=== PATIENT | female | born 1975 | race Caucasian/White ===

== ENCOUNTER 2020-10-06 21:18 | Emergency (ER) | payer OTHER ==
[~2020-10-06 21:18] MED LIST: ALDACTONE 25MG25 MG PO; ALDACTONE50 MG PO; ASPIRIN EC81 MG PO; BASAGLAR K100 UNIT/1 SQ; BUMETANIDE1 MG PO; CARVEDILOL25 MG PO; DECADRON6 MG PO; DEX4 GLUCOSE4 GM PO; ENTRESTO 24 MG1 EACH PO; ENTRESTO 97 MG1 EACH PO; FERROUS GLUCON324 M1 PO; FUROSEMIDE40 MG PO; GLUCAGON IV/SC 11 MG IM; GLUTOSE 1537.5 GM PO; HUMALOG 10100 UNITS/ SC; HUMALOG100 UNIT/3 SC; HYDRALAZINE HCL50 MG PO; K-TAB ER20 MEQ PO; LABETALOL HCL100 MG PO; LANTUS INS100 UTS/M1 SQ; LANTUS100 UNIT/1 SQ; LASIX40 MG PO; LISINOPRIL40 MG PO; METOPROLOL SUCC50 MG PO; NOVOLIN R100 UNIT/1 INJ; NOVOLOG100 UNIT/1 SC; VISTARIL25 MG PO
[2020-10-06 22:33] LABS: HEMOGLOBIN 12.4 gm/dl (12.3-15.3); RED BLOOD COUNT 4.76 M/UL (4.00-5.10); WHITE BLOOD COUNT 9.7 K/UL (4.5-11.0)
== END 2020-10-07 02:35 | disposition home or self-care (01) ==
LOC: ER1 21:18
DX: I13.0 Hypertensive heart and chronic kidney disease with heart failure and stage 1 through stage 4 chronic kidney disease, or unspecified chronic kidney disease (principal); N18.9 Chronic kidney disease, unspecified; I50.20 Unspecified systolic (congestive) heart failure; E11.40 Type 2 diabetes mellitus with diabetic neuropathy, unspecified; R79.89 Other specified abnormal findings of blood chemistry; I42.9 Cardiomyopathy, unspecified; E11.65 Type 2 diabetes mellitus with hyperglycemia; E11.22 Type 2 diabetes mellitus with diabetic chronic kidney disease; Z87.891 Personal history of nicotine dependence; Z79.82 Long term (current) use of aspirin
CPT/HCPCS: 71045; 80053; 82550; 82553; 83605; 83874; 83880; 84484; 85025; 93005; 96374; 96375; 99285; J0360; J1940

== ENCOUNTER 2020-12-02 09:10 | Inpatient (IN) | payer OTHER ==
[~2020-12-02] VITALS: Ht 177.8 cm; Wt 116.3 kg
[2020-12-02 10:22] LABS: HEMOGLOBIN 13.1 gm/dl (12.3-15.3); RED BLOOD COUNT 5.04 M/UL (4.00-5.10); WHITE BLOOD COUNT 9.5 K/UL (4.5-11.0)
[2020-12-02] MEDS ORDERED: LASIX40 MG PO (13:00)
[2020-12-02] MEDS ORDERED: PROTONIX20 MG PO (13:01)
[2020-12-03 05:05] LABS: HEMOGLOBIN 11.1 gm/dl (12.3-15.3); RED BLOOD COUNT 4.35 M/UL (4.00-5.10); WHITE BLOOD COUNT 7.1 K/UL (4.5-11.0)
[2020-12-06 05:35] LABS: HEMOGLOBIN 10.4 gm/dl (12.3-15.3); RED BLOOD COUNT 4.11 M/UL (4.00-5.10); WHITE BLOOD COUNT 6.6 K/UL (4.5-11.0)
[2020-12-06 07:11] LABS: ANTISTREPTOLYSIN O AB 354.9 IU/mL (0.0-200.0); COMPLEMENT C3, SERUM 124 mg/dL (82-167); COMPLEMENT C4, SERUM 28 mg/dL (12-38)
[2020-12-06 12:14] LABS: ANTI-DSDNA ANTIBODIES <1 IU/mL (0-9)
[2020-12-06 15:10] LABS: A/G RATIO 0.7 (0.7-1.7); ALBUMIN 2.4 g/dL (2.9-4.4); ALPHA-1-GLOBULIN 0.3 g/dL (0.0-0.4); ALPHA-2-GLOBULIN 0.7 g/dL (0.4-1.0); BETA GLOBULIN 1.2 g/dL (0.7-1.3); GAMMA GLOBULIN 1.4 g/dL (0.4-1.8); GLOBULIN, TOTAL 3.6 g/dL (2.2-3.9); IMMUNOGLOBULIN A, QN, SERUM 510 mg/dL (87-352); IMMUNOGLOBULIN G, QN, SERUM 1385 mg/dL (586-1602); IMMUNOGLOBULIN M, QN, SERUM 94 mg/dL (26-217); M-SPIKE Not Observed g/dL (Not Observed)
[2020-12-06 16:11] LABS: ATYPICAL PANCA <1:20 titer (Neg:<1:20); CYTOPLASMIC (C-ANCA) <1:20 titer (Neg:<1:20); PERINUCLEAR (P-ANCA) <1:20 titer (Neg:<1:20)
[2020-12-07 05:15] LABS: HEMOGLOBIN 9.7 gm/dl (12.3-15.3); RED BLOOD COUNT 3.81 M/UL (4.00-5.10)
[2020-12-07 07:11] LABS: HBSAG SCREEN Negative (Negative); HEP B CORE AB, TOT Negative (Negative); HEP C VIRUS AB >11.0 (0.0-0.9)
[2020-12-08 02:43] LABS: HEMOGLOBIN 9.8 gm/dl (12.3-15.3); RED BLOOD COUNT 3.84 M/UL (4.00-5.10); WHITE BLOOD COUNT 5.5 K/UL (4.5-11.0)
[2020-12-09 02:59] LABS: HEMOGLOBIN 9.1 gm/dl (12.3-15.3); RED BLOOD COUNT 3.68 M/UL (4.00-5.10)
[2020-12-09 03:03] LABS: WHITE BLOOD COUNT 7.1 K/UL (4.5-11.0)
[2020-12-10 03:30] LABS: HEMOGLOBIN 9.3 gm/dl (12.3-15.3); RED BLOOD COUNT 3.7 M/UL (4.00-5.10); WHITE BLOOD COUNT 5.4 K/UL (4.5-11.0)
[2020-12-11 03:54] LABS: HEMOGLOBIN 9.3 gm/dl (12.3-15.3); RED BLOOD COUNT 3.67 M/UL (4.00-5.10); WHITE BLOOD COUNT 5.1 K/UL (4.5-11.0)
[2020-12-11] MEDS ORDERED: LISINOPRIL5 MG PO (11:03)
[2020-12-11] MEDS ORDERED: NIFEDIPINE ER30 M1 PO (11:03)
[2020-12-11] MEDS ORDERED: CHRONULAC20 GM/30 M PO (11:03)
[2020-12-11] MEDS ORDERED: ISOSORBIDE MONO60 MG PO (11:03)
[2020-12-11] MEDS ORDERED: HYDRALAZINE HCL50 MG PO (11:03)
[2020-12-11] MEDS ORDERED: CATAPRES 0.1MG0.1 MG PO (11:03)
[2020-12-11] MEDS ORDERED: LASIX40 MG PO (11:03)
--- NOTE | 2020-12-11 16:20 | NUR ---
PULLED PATIENTS LEFT IJ CENTRAL LINE UPON DISCHARGE DRESSED WITH WHITE MEDIPORE TAPE AND 4X4'S APPLIED PRESSURE. PATIENT WAS HERE AT HOSPITAL FOR AN HOUR AFTER LINE WAS PULLED AND DRESSING WAS CLEAN DRY AND INTACT UPON DISCHARGE.
== END 2020-12-11 15:37 | disposition home or self-care (01) | DRG 291 ==
LOC: ER1 09:10 → CDU 12:08 → CCU 12:08 → M/S 12:08 → CDU 14:49 → CCU 14:55 → PROG CARE 12-07 04:13 → M/S 12-09 11:12
PROVIDERS: Emergency Medicine; Family Medicine; Internal Medicine Cardiovascular Disease; Internal Medicine Nephrology; Physician Assistant Medical; ADMIT Internal Medicine
PROC: 02HV33Z Insertion of Infusion Device into Superior Vena Cava, Percutaneous Approach (ICD-10-PCS; principal; 2020-12-05)
PROC: B548ZZA Ultrasonography of Superior Vena Cava, Guidance (ICD-10-PCS; 2020-12-05)
DX: I13.0 Hypertensive heart and chronic kidney disease with heart failure and stage 1 through stage 4 chronic kidney disease, or unspecified chronic kidney disease (principal); I50.23 Acute on chronic systolic (congestive) heart failure; E87.1 Hypo-osmolality and hyponatremia; N17.9 Acute kidney failure, unspecified; E11.65 Type 2 diabetes mellitus with hyperglycemia; E11.21 Type 2 diabetes mellitus with diabetic nephropathy; D50.9 Iron deficiency anemia, unspecified; E11.22 Type 2 diabetes mellitus with diabetic chronic kidney disease; I16.0 Hypertensive urgency; I42.8 Other cardiomyopathies; N18.30 Chronic kidney disease, stage 3 unspecified; F15.10 Other stimulant abuse, uncomplicated; E66.9 Obesity, unspecified; E78.5 Hyperlipidemia, unspecified; F17.210 Nicotine dependence, cigarettes, uncomplicated; Z79.01 Long term (current) use of anticoagulants; Z79.899 Other long term (current) drug therapy; Z79.82 Long term (current) use of aspirin; Z79.4 Long term (current) use of insulin; Z95.810 Presence of automatic (implantable) cardiac defibrillator; Z91.19 Patient's noncompliance with other medical treatment and regimen; Z86.19 Personal history of other infectious and parasitic diseases; Z90.49 Acquired absence of other specified parts of digestive tract; Z86.16 Personal history of COVID-19; Z20.822 Contact with and (suspected) exposure to COVID-19; Z68.33 Body mass index [BMI] 33.0-33.9, adult
CPT/HCPCS: 36415; 36600; 51702; 71045; 80048; 80053; 80307; 81001; 82550; 82553; 82570; 82728; 82784; 82803; 82947; 82962; 83036; 83520; 83540; 83550; 83605; 83735; 83874; 83880; 83883; 84132; 84155; 84156; 84165; 84484; 85025; 85027; 86038; 86060; 86160; 86162; 86225; 86256; 86334; 86704; 86706; 86708; 86803; 87040; 87340; 93005; 93308; 93971; 94640; 94664; 94760; 96372; 96374; 96375; 99285; C1751; J1205; J1644; J1756; J1940; U0002

== ENCOUNTER 2021-01-26 16:21 | Inpatient (IN) | payer OTHER ==
[~2021-01-26] VITALS: Ht 177.8 cm; Wt 102.3 kg
[~2021-01-26 16:21] MED LIST changes: +CATAPRES 0.1MG0.1 MG PO; +CHRONULAC20 GM/30 M PO; +ISOSORBIDE MONO60 MG PO; +LISINOPRIL5 MG PO; +NIFEDIPINE ER30 M1 PO; +PROTONIX20 MG PO
[2021-01-26 18:47] LABS: HEMOGLOBIN 13.3 gm/dl (12.3-15.3); RED BLOOD COUNT 4.77 M/UL (4.00-5.10); WHITE BLOOD COUNT 13.4 K/UL (4.5-11.0)
[2021-01-26] MEDS ORDERED: LASIX40 MG PO (22:15)
[2021-01-26] MEDS ORDERED: METOLAZONE10 MG PO (22:16)
--- NOTE | 2021-01-27 23:15 | NUR ---
0610: PATIENT HIT THE CALL LIGHT AND THIS NURSE GOES INTO THE ROOM TO ASSIST WITH THE PATIENT NEEDS. PATIENT STATED THAT SHE NEEDED TO USE THE RESTROOM. THIS NURSE UNATTACHES THE IV FLUIDS THAT ARE ATTACHED TO THE IV AND ECG MONITOR WIRES, TO ALLOW THE PATIENT TO WALK TO THE RESTROOM, AWARE THAT THE PATIENT WAS NOT A FALL RISK AND WAS AMBULATORY 4 HOURS PRIOR TO A PREVIOUS PATIENT ASSIST TO THE RESTROOM WITHOUT COMPLICATIONS OR WEAKNESS. FSBS WAS CHECKED PRIOR TO THE PATIENT EXITING THE BED WHICH RESULTED 97. WHEN THE PATIENT GOT OUT OF THE BED WITH THIS NURSES ASSISTANCE, THE PATIENT TOOK TWO STEPS AND LOST HER BALANCE. THIS NURSE GUIDED THE PATIENT DOWN TO THE FLOOR AND MADE SURE NO INJURIES WERE OBTAINED. HELP WAS CALLED BY THIS NURSE TO HELP ASSIST THE PATIENT BACK INTO THE BED. PATIENT QUESTIONED BY THIS NURSE ABOUT ANY INJURIES AND THE PATIENT STATED THAT NOTHING WAS HURT DURING OR AFTER HER FALL. MD NOTIFED. THIS NURSE MADE SURE THE BED WAS IN THE LOCKED AND LOWEST POSITION, BED ALARM REMAINED ON, AND CALL LIGHT IN REACH.
[2021-01-28 03:41] LABS: HEMOGLOBIN 10.7 gm/dl (12.3-15.3); RED BLOOD COUNT 3.94 M/UL (4.00-5.10); WHITE BLOOD COUNT 8.1 K/UL (4.5-11.0)
[2021-01-29 03:53] LABS: RED BLOOD COUNT 3.68 M/UL (4.00-5.10)
[2021-01-29 03:59] LABS: WHITE BLOOD COUNT 5.8 K/UL (4.5-11.0)
[2021-01-30 06:17] LABS: HEMOGLOBIN 10.1 gm/dl (12.3-15.3); RED BLOOD COUNT 3.72 M/UL (4.00-5.10)
[2021-01-30 06:30] LABS: WHITE BLOOD COUNT 8.2 K/UL (4.5-11.0)
[2021-01-31 05:53] LABS: HEMOGLOBIN 10.5 gm/dl (12.3-15.3); RED BLOOD COUNT 3.85 M/UL (4.00-5.10); WHITE BLOOD COUNT 8.7 K/UL (4.5-11.0)
--- NOTE | 2021-01-31 11:00 | NUR ---
1100: MANUAL BP OBTAINED BY RN NOTED AT 174/110. RN SPOKE WITH PAULETTE HILLIARD WHO IS TO RELAY MESSAGE TO DR SUERO (IN ROUTE TO FLOOR). AWAITING ORDERS.
[2021-01-31] MEDS ORDERED: NICOTINE PATCH1 EAC2 TD (11:24)
[2021-01-31] MEDS ORDERED: CEFUROXIME250 MG PO (11:24)
[2021-01-31] MEDS ORDERED: CHRONULAC20 GM/30 M PO ×2 (11:24→11:46)
== END 2021-01-31 14:56 | disposition home or self-care (01) | DRG 871 ==
LOC: ER1 16:21 → CCU 20:49 → CDU 20:49 → CCU 22:06 → MED SURG 4 01-29 11:49
PROVIDERS: Internal Medicine Infectious Disease; Physician Assistant; ADMIT Internal Medicine
DX: A41.9 Sepsis, unspecified organism (principal); E11.10 Type 2 diabetes mellitus with ketoacidosis without coma; N30.00 Acute cystitis without hematuria; N17.9 Acute kidney failure, unspecified; I13.0 Hypertensive heart and chronic kidney disease with heart failure and stage 1 through stage 4 chronic kidney disease, or unspecified chronic kidney disease; I50.22 Chronic systolic (congestive) heart failure; E87.1 Hypo-osmolality and hyponatremia; I42.8 Other cardiomyopathies; J90 Pleural effusion, not elsewhere classified; G93.49 Other encephalopathy; B96.20 Unspecified Escherichia coli [E. coli] as the cause of diseases classified elsewhere; N18.30 Chronic kidney disease, stage 3 unspecified; F17.210 Nicotine dependence, cigarettes, uncomplicated; R77.8 Other specified abnormalities of plasma proteins; F15.10 Other stimulant abuse, uncomplicated; F41.9 Anxiety disorder, unspecified; K52.9 Noninfective gastroenteritis and colitis, unspecified; K21.9 Gastro-esophageal reflux disease without esophagitis; D69.6 Thrombocytopenia, unspecified; E78.5 Hyperlipidemia, unspecified; I27.20 Pulmonary hypertension, unspecified; E87.5 Hyperkalemia; F32.9 Major depressive disorder, single episode, unspecified; E11.22 Type 2 diabetes mellitus with diabetic chronic kidney disease; D63.1 Anemia in chronic kidney disease; Z95.810 Presence of automatic (implantable) cardiac defibrillator; Z87.442 Personal history of urinary calculi; Z91.19 Patient's noncompliance with other medical treatment and regimen; Z90.49 Acquired absence of other specified parts of digestive tract; Z82.49 Family history of ischemic heart disease and other diseases of the circulatory system; Z86.16 Personal history of COVID-19; Z79.82 Long term (current) use of aspirin; Z79.4 Long term (current) use of insulin; Z79.899 Other long term (current) drug therapy
CPT/HCPCS: 0240U; 36415; 36600; 71045; 80048; 80053; 80307; 81001; 82550; 82553; 82803; 82962; 83036; 83605; 83735; 83874; 83880; 84100; 84439; 84443; 84484; 85025; 86140; 87040; 87077; 87086; 87186; 93005; 96365; 96375; 99285; C9113; J0696; J1650; J2270; J2405; J2543; J7030; J7050

== ENCOUNTER 2021-02-08 00:01 | Emergency (ER) | payer OTHER ==
[~2021-02-08 00:01] MED LIST changes: +CEFUROXIME250 MG PO; +METOLAZONE10 MG PO; +NICOTINE PATCH1 EAC2 TD
[2021-02-08 00:51] LABS: HEMOGLOBIN 11.2 gm/dl (12.3-15.3); RED BLOOD COUNT 4.08 M/UL (4.00-5.10); WHITE BLOOD COUNT 7.6 K/UL (4.5-11.0)
== END 2021-02-08 07:30 | disposition short-term general hospital (02) ==
LOC: ER1 00:01
PROVIDERS: Emergency Medicine
DX: I16.1 Hypertensive emergency (principal); I13.0 Hypertensive heart and chronic kidney disease with heart failure and stage 1 through stage 4 chronic kidney disease, or unspecified chronic kidney disease; N18.9 Chronic kidney disease, unspecified; I50.9 Heart failure, unspecified; E11.22 Type 2 diabetes mellitus with diabetic chronic kidney disease; I25.10 Atherosclerotic heart disease of native coronary artery without angina pectoris; Z20.822 Contact with and (suspected) exposure to COVID-19
CPT/HCPCS: 36600; 71045; 80053; 82550; 82553; 82803; 82962; 83605; 83735; 83874; 83880; 84100; 84439; 84443; 84484; 85025; 85610; 85730; 87040; 93005; 94760; 99285; J2270; J2405; U0002

== ENCOUNTER 2021-03-22 19:00 | Emergency (ER) | payer OTHER | END 2021-03-22 19:50 | disposition left against medical advice (07) | LOC: ER1 19:00 | DX: Z53.21 Procedure and treatment not carried out due to patient leaving prior to being seen by health care provider (principal) ==

== ENCOUNTER 2021-06-27 16:18 | Inpatient (IN) | payer OTHER ==
[~2021-06-27] VITALS: Ht 177.8 cm; Wt 79.4 kg
[2021-06-27 17:55] LABS: HEMOGLOBIN 8.9 gm/dl (12.3-15.3); RED BLOOD COUNT 3.21 M/UL (4.00-5.10); WHITE BLOOD COUNT 7.2 K/UL (4.5-11.0)
[2021-06-28 05:58] LABS: HEMOGLOBIN 9.7 gm/dl (12.3-15.3); RED BLOOD COUNT 3.37 M/UL (4.00-5.10); WHITE BLOOD COUNT 7.8 K/UL (4.5-11.0)
--- NOTE | 2021-06-28 16:16 | NUR ---
PATIENT GOES OFF THE FLOOR AND OUTSIDE WITH HER VISITOR. ADVISED NOT TO.
[2021-06-30 06:51] LABS: HEMOGLOBIN 10.4 gm/dl (12.3-15.3); RED BLOOD COUNT 3.56 M/UL (4.00-5.10); WHITE BLOOD COUNT 6.3 K/UL (4.5-11.0)
[2021-07-01 07:53] LABS: HEMOGLOBIN 9.4 gm/dl (12.3-15.3); RED BLOOD COUNT 3.41 M/UL (4.00-5.10); WHITE BLOOD COUNT 6.1 K/UL (4.5-11.0)
[2021-07-01] MEDS ORDERED: ZAROXOLYN/DIULO5 MG PO (12:06)
== END 2021-07-01 15:52 | disposition home or self-care (01) | DRG 637 ==
LOC: ER1 16:18 → CDU 18:57 → CCU 21:44 → M/S 06-28 11:16
PROVIDERS: Emergency Medicine; Internal Medicine Nephrology; ADMIT Internal Medicine
DX: E11.65 Type 2 diabetes mellitus with hyperglycemia (principal); G93.41 Metabolic encephalopathy; I50.32 Chronic diastolic (congestive) heart failure; Z20.822 Contact with and (suspected) exposure to COVID-19; I13.0 Hypertensive heart and chronic kidney disease with heart failure and stage 1 through stage 4 chronic kidney disease, or unspecified chronic kidney disease; N18.4 Chronic kidney disease, stage 4 (severe); N04.9 Nephrotic syndrome with unspecified morphologic changes; E87.1 Hypo-osmolality and hyponatremia; I42.8 Other cardiomyopathies; N17.9 Acute kidney failure, unspecified; D69.6 Thrombocytopenia, unspecified; F41.9 Anxiety disorder, unspecified; F32.A Depression, unspecified; E11.22 Type 2 diabetes mellitus with diabetic chronic kidney disease; F17.210 Nicotine dependence, cigarettes, uncomplicated; D63.1 Anemia in chronic kidney disease; F15.10 Other stimulant abuse, uncomplicated; F19.10 Other psychoactive substance abuse, uncomplicated; Z79.4 Long term (current) use of insulin; Z95.810 Presence of automatic (implantable) cardiac defibrillator; Z91.14 Patient's other noncompliance with medication regimen; Z79.82 Long term (current) use of aspirin; Z90.49 Acquired absence of other specified parts of digestive tract; Z82.49 Family history of ischemic heart disease and other diseases of the circulatory system; Z98.891 History of uterine scar from previous surgery; Z87.442 Personal history of urinary calculi
CPT/HCPCS: 36415; 36600; 71045; 80048; 80053; 80069; 80307; 81001; 82009; 82550; 82553; 82728; 82803; 82962; 83540; 83550; 83874; 83880; 84484; 84703; 85025; 85027; 87040; 87086; 93005; 99285; J0696; Q5106; U0002

== ENCOUNTER 2021-08-18 18:11 | Inpatient (IN) | payer OTHER ==
[~2021-08-18] VITALS: Ht 177.8 cm; Wt 68.0 kg
[~2021-08-18 18:11] MED LIST changes: +ZAROXOLYN/DIULO5 MG PO
[2021-08-18 18:22] LABS: HEMOGLOBIN 11.3 gm/dl (12.3-15.3); WHITE BLOOD COUNT 7.3 K/UL (4.5-11.0)
[2021-08-19 06:04] LABS: HEMOGLOBIN 10.8 gm/dl (12.3-15.3); RED BLOOD COUNT 3.83 M/UL (4.00-5.10); WHITE BLOOD COUNT 8.7 K/UL (4.5-11.0)
[2021-08-19 14:37] LABS: HEMOGLOBIN 10.4 gm/dl (12.3-15.3); RED BLOOD COUNT 3.71 M/UL (4.00-5.10); WHITE BLOOD COUNT 8.5 K/UL (4.5-11.0)
[2021-08-21 06:53] LABS: HEMOGLOBIN 10.1 gm/dl (12.3-15.3); RED BLOOD COUNT 3.56 M/UL (4.00-5.10); WHITE BLOOD COUNT 7.2 K/UL (4.5-11.0)
[2021-08-22 04:19] LABS: HEMOGLOBIN 10.5 gm/dl (12.3-15.3); RED BLOOD COUNT 3.7 M/UL (4.00-5.10); WHITE BLOOD COUNT 6.3 K/UL (4.5-11.0)
[2021-08-23 06:48] LABS: HEMOGLOBIN 9.6 gm/dl (12.3-15.3); RED BLOOD COUNT 3.38 M/UL (4.00-5.10); WHITE BLOOD COUNT 6.6 K/UL (4.5-11.0)
--- NOTE | 2021-08-28 14:27 | NUR ---
PATIENT C/O NOT FEELING WELL. STATED SHE THOUGHT HER BS WAS LOW. PATIENT ASSESSED. BS 82. VS WNL. O2 SAT 100% ON RM AIR. PATIENT ASKED FOR REGULAR 7UP. STATED 82 IS A LOW BS FOR HER. PATIENT GIVEN 7UP. PATIENT STATED SHE FELT BETTER.
--- NOTE | 2021-08-28 23:58 | NUR ---
S/O came out and said pt felt like her blood glucose was low. When I checked it was 69. No hypoglycemic protocol was on the OCT. I called Dr. Ojeda and he gave an order for hypoglycemic protocol and it was fax to pharmacy. The patient didn't want medication by IV but she is eating peanut butter and crackers and a soda. I will recheck in 30 min.
[2021-08-29 13:21] LABS: URINE CREATININE 58.7 mg/dL
[2021-08-30 06:50] LABS: HEMOGLOBIN 9.3 gm/dl (12.3-15.3); RED BLOOD COUNT 3.31 M/UL (4.00-5.10); WHITE BLOOD COUNT 5.4 K/UL (4.5-11.0)
[2021-08-30 07:22] LABS: BUN/CREATININE RATIO 13 (0-10)
[2021-08-31 04:41] LABS: HEMOGLOBIN 8.4 gm/dl (12.3-15.3); RED BLOOD COUNT 3.08 M/UL (4.00-5.10); WHITE BLOOD COUNT 5.3 K/UL (4.5-11.0)
--- NOTE | 2021-08-31 16:03 | NUR ---
PT IS OFF THE UNIT AFTER HAVING A RIGHT CHEST WALL DIALYSIS CATHETER PLACED SHE IS IN DIALYSIS.
[2021-09-01 05:47] LABS: HEMOGLOBIN 9.5 gm/dl (12.3-15.3); WHITE BLOOD COUNT 5.9 K/UL (4.5-11.0)
[2021-09-01 05:54] LABS: RED BLOOD COUNT 3.43 M/UL (4.00-5.10)
[2021-09-02 09:22] LABS: RED BLOOD COUNT 3.2 M/UL (4.00-5.10)
[2021-09-02 09:25] LABS: WHITE BLOOD COUNT 3.1 K/UL (4.5-11.0)
--- NOTE | 2021-09-02 19:00 | NUR ---
DIALYSIS NURSE COMMUNICATION ENTERED BY THIS AM. PATIENT DIDN'T RECEIVE DIALYSIS THIS SHIFT. ATTEMPTED TO NOTIFY [facility] THE DIALYSIS NURSE HEALTH CARE SPECIALIST AT [phone] WITH NO ANSWER X3 ATTEMPTS.
--- NOTE | 2021-09-02 20:36 | NUR ---
2019 [facility] Dialysis nurse agricultural extension educator returned my call. I explained the nurse note Dr. Madsen left for the dialysis nurse. Dr. Madsen wanted the patient to have dialysis today 09/02/21. She called Dr. Madsen who said she could have the treatment tomorrow. Maddy ask that I print the nursing communication note and place it in the chart for her. Printed and in the chart.
[2021-09-03 05:41] LABS: HEMOGLOBIN 9.1 gm/dl (12.3-15.3); RED BLOOD COUNT 3.21 M/UL (4.00-5.10); WHITE BLOOD COUNT 3.8 K/UL (4.5-11.0)
--- NOTE | 2021-09-03 09:42 | NUR ---
DIALYSIS NURSE NOTIFIED THAT PATIENT IS TO HAVE DIALYSIS TODAY. NURSE STATES SHE WILL GET HER IN AN HOUR OR SO.
[2021-09-04 06:57] LABS: HEMOGLOBIN 9.6 gm/dl (12.3-15.3); RED BLOOD COUNT 3.46 M/UL (4.00-5.10); WHITE BLOOD COUNT 3.9 K/UL (4.5-11.0)
[2021-09-05 04:18] LABS: HEMOGLOBIN 8.7 gm/dl (12.3-15.3); RED BLOOD COUNT 3.14 M/UL (4.00-5.10); WHITE BLOOD COUNT 4.3 K/UL (4.5-11.0)
[2021-09-05 10:15] LABS: HBSAG SCREEN Negative (Negative); HEP A AB, IGM Negative (Negative); HEP B CORE AB, IGM Negative (Negative); HEP C VIRUS AB >11.0 (0.0-0.9)
[2021-09-06 04:27] LABS: HEMOGLOBIN 8.8 gm/dl (12.3-15.3); RED BLOOD COUNT 3.19 M/UL (4.00-5.10); WHITE BLOOD COUNT 4.3 K/UL (4.5-11.0)
[2021-09-06] MEDS ORDERED: HUMALOG 10100 UNITS/ SC ×2 (16:00)
[2021-09-06] MEDS ORDERED: POLYETHYLENE GL17 GM PO (16:00)
[2021-09-06] MEDS ORDERED: DOCUSATE SODIU100 MG PO (16:00)
[2021-09-06] MEDS ORDERED: NIFEDIPINE ER30 M1 PO (16:07)
[2021-09-06] MEDS ORDERED: NIFEDIPINE ER90 MG PO (16:15)
[2021-09-06] MEDS ORDERED: LIDOCAINE PAIN1 EACH EXT (17:06)
[2021-09-06] MEDS ORDERED: ZOFRAN 4 MG TAB4 MG PO (17:07)
== END 2021-09-06 17:43 | disposition home health service (06) | DRG 637 ==
LOC: ER1 18:11 → PROG CARE 21:04 → CDU 21:04 → CCU 21:04 → M/S 21:04 → CCU 08-19 02:25 → PROG CARE 08-21 10:27 → M/S 08-22 21:01
PROVIDERS: Hospitalist; Internal Medicine; Internal Medicine Nephrology; Nurse Practitioner; Physician Assistant; Surgery; ADMIT Internal Medicine
PROC: 5A1D70Z Performance of Urinary Filtration, Intermittent, Less than 6 Hours Per Day (ICD-10-PCS; 2021-08-30)
PROC: 02HV33Z Insertion of Infusion Device into Superior Vena Cava, Percutaneous Approach (ICD-10-PCS; 2021-08-31)
PROC: 0JH63XZ Insertion of Tunneled Vascular Access Device into Chest Subcutaneous Tissue and Fascia, Percutaneous Approach (ICD-10-PCS; principal; 2021-08-31 11:19)
PROC: 5A1D70Z Performance of Urinary Filtration, Intermittent, Less than 6 Hours Per Day (ICD-10-PCS; 2021-09-01)
PROC: 5A1D70Z Performance of Urinary Filtration, Intermittent, Less than 6 Hours Per Day (ICD-10-PCS; 2021-09-03)
PROC: 5A1D70Z Performance of Urinary Filtration, Intermittent, Less than 6 Hours Per Day (ICD-10-PCS; 2021-09-05)
DX: E11.10 Type 2 diabetes mellitus with ketoacidosis without coma (principal); N18.6 End stage renal disease; I50.23 Acute on chronic systolic (congestive) heart failure; I13.2 Hypertensive heart and chronic kidney disease with heart failure and with stage 5 chronic kidney disease, or end stage renal disease; E87.1 Hypo-osmolality and hyponatremia; N17.9 Acute kidney failure, unspecified; N04.9 Nephrotic syndrome with unspecified morphologic changes; I25.5 Ischemic cardiomyopathy; E86.0 Dehydration; I16.0 Hypertensive urgency; E78.5 Hyperlipidemia, unspecified; F17.200 Nicotine dependence, unspecified, uncomplicated; Z20.822 Contact with and (suspected) exposure to COVID-19; F41.9 Anxiety disorder, unspecified; F32.A Depression, unspecified; E87.6 Hypokalemia; D64.9 Anemia, unspecified; F19.10 Other psychoactive substance abuse, uncomplicated; M54.9 Dorsalgia, unspecified; K59.00 Constipation, unspecified; B19.20 Unspecified viral hepatitis C without hepatic coma; E87.5 Hyperkalemia; R53.81 Other malaise; E11.22 Type 2 diabetes mellitus with diabetic chronic kidney disease; Z91.14 Patient's other noncompliance with medication regimen; Z99.2 Dependence on renal dialysis; Z87.442 Personal history of urinary calculi; Z90.49 Acquired absence of other specified parts of digestive tract; Z98.890 Other specified postprocedural states; Z95.810 Presence of automatic (implantable) cardiac defibrillator; Z80.8 Family history of malignant neoplasm of other organs or systems; Z79.4 Long term (current) use of insulin; Z79.899 Other long term (current) drug therapy; Z79.82 Long term (current) use of aspirin
CPT/HCPCS: 36415; 36600; 71045; 77001; 78580; 80048; 80053; 80069; 80074; 80076; 80307; 81001; 82009; 82550; 82553; 82565; 82570; 82575; 82728; 82803; 82947; 82962; 83540; 83550; 83735; 83874; 83880; 84100; 84132; 84484; 84703; 85007; 85025; 85027; 85379; 85610; 85730; 86140; 90935; 90937; 93005; 93970; 96374; 96375; 97110; 97110-GP-CQ; 97116-GP-CQ; 97161; 97166; 97530-GP-CQ; 99284; A9540; C1750; C1769; C9113; J0360; J0690; J1642; J1644; J2405; J3010; J3475; J3480; J7030; J7040; J7070; J7120; J7131; U0002

== ENCOUNTER 2021-09-10 04:27 | Inpatient (IN) | payer OTHER ==
[~2021-09-10] VITALS: Ht 177.8 cm; Wt 93.0 kg
[~2021-09-10 04:27] MED LIST changes: +DOCUSATE SODIU100 MG PO; +LIDOCAINE PAIN1 EACH EXT; +NIFEDIPINE ER90 MG PO; +POLYETHYLENE GL17 GM PO; +ZOFRAN 4 MG TAB4 MG PO
[2021-09-10 05:44] LABS: RED BLOOD COUNT 3.87 M/UL (4.00-5.10); WHITE BLOOD COUNT 13.1 K/UL (4.5-11.0)
[2021-09-11 05:24] LABS: HEMOGLOBIN 9.9 gm/dl (12.3-15.3); RED BLOOD COUNT 3.54 M/UL (4.00-5.10)
[2021-09-11 05:38] LABS: WHITE BLOOD COUNT 6.5 K/UL (4.5-11.0)
[2021-09-12 05:30] LABS: HEMOGLOBIN 8.9 gm/dl (12.3-15.3); RED BLOOD COUNT 3.28 M/UL (4.00-5.10); WHITE BLOOD COUNT 5.1 K/UL (4.5-11.0)
[2021-09-13 05:35] LABS: HEMOGLOBIN 8.2 gm/dl (12.3-15.3); RED BLOOD COUNT 3.06 M/UL (4.00-5.10); WHITE BLOOD COUNT 4.7 K/UL (4.5-11.0)
--- NOTE | 2021-09-13 15:13 | NUR ---
PATIENT TRANSPORTED TO DIALYSIS BY TRANSPORTER. PATIENT PLACED ON TELEMETRY
--- NOTE | 2021-09-13 18:05 | NUR ---
PATIENT REMAINS IN DIALYSIS ROOM
[2021-09-13] MEDS ORDERED: LISINOPRIL10 MG PO (18:32)
[2021-09-13] MEDS ORDERED: CATAPRES 0.1MG0.1 MG PO ×2 (18:32→18:39)
[2021-09-14 08:14] LABS: RED BLOOD COUNT 3.31 M/UL (4.00-5.10)
[2021-09-14 08:23] LABS: WHITE BLOOD COUNT 6.3 K/UL (4.5-11.0)
== END 2021-09-14 14:30 | disposition home or self-care (01) | DRG 291 ==
LOC: ER1 04:27 → CDU 08:53 → CCU 08:53
PROVIDERS: Family Medicine; Internal Medicine; Physician Assistant Medical; ADMIT Internal Medicine
PROC: 5A1D70Z Performance of Urinary Filtration, Intermittent, Less than 6 Hours Per Day (ICD-10-PCS; principal; 2021-09-10)
PROC: 5A1D70Z Performance of Urinary Filtration, Intermittent, Less than 6 Hours Per Day (ICD-10-PCS; 2021-09-11)
PROC: 5A1D70Z Performance of Urinary Filtration, Intermittent, Less than 6 Hours Per Day (ICD-10-PCS; 2021-09-12)
PROC: 5A1D70Z Performance of Urinary Filtration, Intermittent, Less than 6 Hours Per Day (ICD-10-PCS; 2021-09-12)
DX: I13.2 Hypertensive heart and chronic kidney disease with heart failure and with stage 5 chronic kidney disease, or end stage renal disease (principal); N18.6 End stage renal disease; I50.23 Acute on chronic systolic (congestive) heart failure; E11.22 Type 2 diabetes mellitus with diabetic chronic kidney disease; F19.10 Other psychoactive substance abuse, uncomplicated; Z20.822 Contact with and (suspected) exposure to COVID-19; I42.8 Other cardiomyopathies; F17.210 Nicotine dependence, cigarettes, uncomplicated; E78.5 Hyperlipidemia, unspecified; I16.0 Hypertensive urgency; B18.2 Chronic viral hepatitis C; M54.50 Low back pain, unspecified; Z99.2 Dependence on renal dialysis; Z95.810 Presence of automatic (implantable) cardiac defibrillator; Z79.899 Other long term (current) drug therapy; Z87.442 Personal history of urinary calculi; Z90.49 Acquired absence of other specified parts of digestive tract; Z98.890 Other specified postprocedural states; Z79.82 Long term (current) use of aspirin; Z80.8 Family history of malignant neoplasm of other organs or systems; Z79.4 Long term (current) use of insulin
CPT/HCPCS: 36415; 36600; 71045; 72131; 74018; 80048; 80053; 80307; 81001; 82550; 82553; 82728; 82803; 82962; 83540; 83550; 83735; 83874; 83880; 84484; 84703; 85025; 85027; 85610; 90937; 93005; 94760; 96372; 96374; 96375; 96376; 99285; G0257; J0360; J1644; J1650; J2185; J2270; J2405; U0002

== ENCOUNTER 2021-11-22 16:52 | Inpatient (IN) | payer OTHER ==
[~2021-11-22] VITALS: Ht 180.3 cm; Wt 78.1 kg
[~2021-11-22 16:52] MED LIST changes: -BASAGLAR K100 UNIT/1 SQ; +LANTUS SOL100 UNIT/1 SQ; +LISINOPRIL10 MG PO
[2021-11-22 18:44] LABS: HEMOGLOBIN 10.1 gm/dl (12.3-15.3); RED BLOOD COUNT 3.45 M/UL (4.00-5.10); WHITE BLOOD COUNT 8.5 K/UL (4.5-11.0)
[2021-11-23 06:31] LABS: HEMOGLOBIN 9.3 gm/dl (12.3-15.3); RED BLOOD COUNT 3.2 M/UL (4.00-5.10); WHITE BLOOD COUNT 8.1 K/UL (4.5-11.0)
[2021-11-23] MEDS ORDERED: CLONIDINE HCL0.1 MG PO (11:15)
[2021-11-23] MEDS ORDERED: HUMALOG100 UNIT/3 SC (11:19)
[2021-11-23] MEDS ORDERED: HUMALOG100 UNIT/3 SQ (11:22)
[2021-11-23] MEDS ORDERED: AMITRIPTYLINE H25 MG PO (11:24)
[2021-11-23] MEDS ORDERED: ONDANSETRON HCL4 MG PO (11:25)
[2021-11-23] MEDS ORDERED: HYDROCODON-ACE1 EAC2 PO (11:28)
[2021-11-23] MEDS ORDERED: LIDOCAINE PAIN1 EACH TOP (12:12)
== END 2021-11-23 18:00 | disposition home or self-care (01) | DRG 314 ==
LOC: ER1 16:52 → CDU 19:08 → M/S 19:26 → CDU 11-23 15:13 → M/S 11-23 18:00
PROVIDERS: Emergency Medicine; ADMIT Internal Medicine
PROC: 5A1D70Z Performance of Urinary Filtration, Intermittent, Less than 6 Hours Per Day (ICD-10-PCS; principal; 2021-11-23)
DX: T82.818A Embolism due to vascular prosthetic devices, implants and grafts, initial encounter (principal); N18.6 End stage renal disease; E87.1 Hypo-osmolality and hyponatremia; E87.2 Acidosis; I13.2 Hypertensive heart and chronic kidney disease with heart failure and with stage 5 chronic kidney disease, or end stage renal disease; I50.22 Chronic systolic (congestive) heart failure; Z20.822 Contact with and (suspected) exposure to COVID-19; Y83.8 Other surgical procedures as the cause of abnormal reaction of the patient, or of later complication, without mention of misadventure at the time of the procedure; E11.22 Type 2 diabetes mellitus with diabetic chronic kidney disease; E11.21 Type 2 diabetes mellitus with diabetic nephropathy; D63.1 Anemia in chronic kidney disease; F17.210 Nicotine dependence, cigarettes, uncomplicated; R19.7 Diarrhea, unspecified; Z91.15 Patient's noncompliance with renal dialysis; Z79.4 Long term (current) use of insulin; Z79.01 Long term (current) use of anticoagulants; Z79.82 Long term (current) use of aspirin; Z98.891 History of uterine scar from previous surgery; Z90.49 Acquired absence of other specified parts of digestive tract; Z87.442 Personal history of urinary calculi; Z80.9 Family history of malignant neoplasm, unspecified; Z83.6 Family history of other diseases of the respiratory system; Z95.810 Presence of automatic (implantable) cardiac defibrillator
CPT/HCPCS: 36415; 80048; 82962; 83735; 85025; 90935; 93005; 99284; J2997; U0002

== ENCOUNTER 2021-12-01 09:51 | Inpatient (IN) | payer OTHER ==
[~2021-12-01] VITALS: Ht 180 cm; Wt 75.6 kg
[~2021-12-01 09:51] MED LIST changes: +AMITRIPTYLINE H25 MG PO; +CLONIDINE HCL0.1 MG PO; +HUMALOG100 UNIT/3 SQ; +HYDROCODON-ACE1 EAC2 PO; +LIDOCAINE PAIN1 EACH TOP; +ONDANSETRON HCL4 MG PO
[2021-12-01 11:03] LABS: HEMOGLOBIN 10.4 gm/dl (12.3-15.3); RED BLOOD COUNT 3.63 M/UL (4.00-5.10); WHITE BLOOD COUNT 13.3 K/UL (4.5-11.0)
[2021-12-02 05:29] LABS: HEMOGLOBIN 8.8 gm/dl (12.3-15.3)
[2021-12-02 05:31] LABS: RED BLOOD COUNT 3.19 M/UL (4.00-5.10); WHITE BLOOD COUNT 9.9 K/UL (4.5-11.0)
[2021-12-02] MEDS ORDERED: CLONIDINE HCL0.1 MG PO (12:32)
[2021-12-03 06:15] LABS: HEMOGLOBIN 8.8 gm/dl (12.3-15.3); RED BLOOD COUNT 3.08 M/UL (4.00-5.10); WHITE BLOOD COUNT 11.4 K/UL (4.5-11.0)
[2021-12-04 06:02] LABS: HEMOGLOBIN 9.3 gm/dl (12.3-15.3); RED BLOOD COUNT 3.25 M/UL (4.00-5.10); WHITE BLOOD COUNT 10.2 K/UL (4.5-11.0)
--- NOTE | 2021-12-05 01:43 | NUR ---
PT CRYING STATING THAT SHE NEEDS SOMETHING FOR PAIN. NOTIFIED MD AND RECIEVED ORDERS. WILL CONTINUE TO MONITOR.
[2021-12-05 06:09] LABS: HEMOGLOBIN 8.8 gm/dl (12.3-15.3); RED BLOOD COUNT 3.16 M/UL (4.00-5.10); WHITE BLOOD COUNT 9.9 K/UL (4.5-11.0)
[2021-12-06 05:11] LABS: HEMOGLOBIN 8.6 gm/dl (12.3-15.3); RED BLOOD COUNT 3.07 M/UL (4.00-5.10); WHITE BLOOD COUNT 9.8 K/UL (4.5-11.0)
--- NOTE | 2021-12-06 05:51 | NUR ---
NOTIFIED DR RAMIREZ OF CRITICAL POTASSIUM LEVEL OF 5.6. RECIEVED NO NEW ORDERS. PT TO RECIEVE DIALYSIS TODAY.
--- NOTE | 2021-12-06 10:32 | NUR ---
RECIEVED CALL THIS MORNING FROM DAISHA ALEXIS IN CARDIOLOGY. HE STATED A REP FROM [employer] HAD INFORMED HIM THAT THE PATINETS AICD WAS MRI COMPATABLE. THIS INFORMATION WAS GIVEN TO DR. DUARTE, HE WANTED AN MRI DONE ON PATIENT'S C SPINE WITHOUT CONTRAST. DR DUARTE SAID TO GET THE MRI DONE TODAY AFTER DIALYSIS OR TOMORROW IF POSSIBLE. CM IN MRI CALLED THE NURSE TO INFORM FROM HIS POINT OF VIEW THE [employer] REP HAD TO BE IN THE MRI ROOM DURING THE MRI IN ORDER TO TURN AICD ON AND OFF AND MONITOR PATIENT DURING PROCEDURE. THIS INFORMATION WAS ALSO PASSED ALONG TO DR. DUARTE WHO SAID HE ANTICIPATED SUCH A PROBLEM AND HAD PUT IN A CONSULT WITH DR PUENTE. A CARDIOLOGY PA APPROACHED THE NURSE THIS AM AND ASKED ABOUT THIS VERY SITUATION. SHE SAID SHE WOULD LOOK INTO IT AND TRY TO CONTACT ALL INVOLVED.WCTM.
[2021-12-07 06:44] LABS: RED BLOOD COUNT 3.22 M/UL (4.00-5.10); WHITE BLOOD COUNT 9.4 K/UL (4.5-11.0)
[2021-12-08 06:25] LABS: WHITE BLOOD COUNT 8.9 K/UL (4.5-11.0)
[2021-12-08 06:34] LABS: RED BLOOD COUNT 3.61 M/UL (4.00-5.10)
--- NOTE | 2021-12-08 10:59 | NUR ---
1033 - IN DIALYSIS TO SEE PT. PT C/O MIDSTERNAL CP WITHOUT RADIATION. STATES 02/11. B/P 197/131. MD AT BEDSIDE AND AWARE. NTG 1 SL GIVEN 1038 - REPORTS SOME RELIEF OF CP. STATES 10/12. B/P 180/112. NTG 1 SL GIVEN. 1043 - REPORTS COMPLETE RELIEF OF CP. B/P 172/108. MD AWARE. COREG AND IMDUR GIVEN PER AM MEDICATIONS. WILL CONT TO MONITOR. DIALYSIS NURSE REMAINS AT BEDSIDE.
[2021-12-09 03:31] LABS: HEMOGLOBIN 8.6 gm/dl (12.3-15.3); WHITE BLOOD COUNT 9.1 K/UL (4.5-11.0)
[2021-12-09 03:32] LABS: RED BLOOD COUNT 3.1 M/UL (4.00-5.10)
[2021-12-10 00:20] LABS: ESCHERICHIA COLI Not Detected (Negative); KLEBSIELLA OXYTOCA Not Detected (Negative); KPC-CARBAPENEM-RESISTANCE GENE Not Detected (Negative); STAPHYLOCOCCUS AUREUS Not Detected (Negative); STREP AGALACTIAE (GROUP B) Not Detected (Negative); STREP PYOGENES (GROUP A) Not Detected (Negative); STREPTOCOCCUS Not Detected (Negative); vanA/B (VANCOMYCIN RESIST GENE Not Detected (Negative)
[2021-12-10 00:21] LABS: CANDIDA ALBICANS Not Detected (Negative); CANDIDA KRUSEI Not Detected (Negative); CANDIDA TROPICALIS Not Detected (Negative); HAEMOPHILUS INFLUENZAE Not Detected (Negative); KLEBSIELLA PNEUMONIAE Not Detected (Negative); PROTEUS Not Detected (Negative); PSEUDOMONAS AERUGINOSA Not Detected (Negative); SERRATIA MARCESANS Not Detected (Negative)
[2021-12-10 01:31] LABS: STAPHYLOCOCCUS DETECTED (Negative)
--- NOTE | 2021-12-10 20:27 | NUR ---
NOTIFIED DR. FORBES OF CRITICAL CK-MB 9.5 % 10.2. NO NEW ORDERS
[2021-12-11 02:57] LABS: HEMOGLOBIN 8.6 gm/dl (12.3-15.3); RED BLOOD COUNT 3.09 M/UL (4.00-5.10); WHITE BLOOD COUNT 8.1 K/UL (4.5-11.0)
--- NOTE | 2021-12-11 22:56 | NUR ---
12/11/21 @ 2133 WHILE GIVING THE PT BEDTIME MEDS PT STATES: "I DON'T WANT TO GO TO [facility]. MY BOYFRIEND WAS SUPPOSED TO COME TAKE ME OUTSIDE. AND I DON'T WANT THOSE FLUIDS GOING." I EXPLAINED THAT THEY HAD BEEN ORDERED DUE TO HER BG DROPPING THROUGH OUT THE DAY. AT 2230 PT WAS CRYING AND SAID SHE HAD TO GO TO THE BATHROOM. SHE WAS UNHOOKED FROM HER IV FLUIDS SO SHE COULD GO TO THE BATHROOM. WHEN SHE GOT BACK I WENT TO HOOK HER IV FLUIDS BACK UP AND PT REFUSED. I EXPLAINED WHY I NEEDED TO HOOK THEM UP AND SHE SAID HER BOYFRIEND WAS COMING TO TAKE HER OUTSIDE. HE CAME AND GOT HER INTO A WHEELCHAIR. I REMOVED THE OXYGEN TANK FROM THE BACK OF THE WHEELCHAIR, ALTHOUGH SHE WEARS IT IN HER ROOM SHE WASN'T HOOKED UP TO THE PORTABLE TANK. I EDUCATED THE PATIENT IN THE NEED TO WEAR THE OXYGEN AND THE NEED TO RESTART HER FLUIDS. PT VERBALIZED UNDERSTANDING AND HER BOYFRIEND TOOK THE PATIENT OUTSIDE.
[2021-12-12 07:01] LABS: HEMOGLOBIN 8.4 gm/dl (12.3-15.3); RED BLOOD COUNT 2.97 M/UL (4.00-5.10); WHITE BLOOD COUNT 8.1 K/UL (4.5-11.0)
[2021-12-13 02:57] LABS: HEMOGLOBIN 7.8 gm/dl (12.3-15.3); RED BLOOD COUNT 2.81 M/UL (4.00-5.10); WHITE BLOOD COUNT 7.5 K/UL (4.5-11.0)
--- NOTE | 2021-12-13 04:32 | NUR ---
0400 BG 79 GAVE PT A SNACK AND APPLE JUICE.
== END 2021-12-14 18:42 | disposition short-term general hospital (02) | DRG 94 ==
LOC: ER1 09:51 → CDU 12:45 → MED SURG 4 12:45 → CCU 14:37 → MED SURG 4 12-02 19:41
PROVIDERS: Family Medicine; Internal Medicine; Internal Medicine Infectious Disease; Internal Medicine Nephrology; Internal Medicine Pulmonary Disease; Physician Assistant Medical; ADMIT Internal Medicine
PROC: 5A1D70Z Performance of Urinary Filtration, Intermittent, Less than 6 Hours Per Day (ICD-10-PCS; principal; 2021-12-04)
PROC: 5A1D70Z Performance of Urinary Filtration, Intermittent, Less than 6 Hours Per Day (ICD-10-PCS; 2021-12-06)
PROC: 5A1D70Z Performance of Urinary Filtration, Intermittent, Less than 6 Hours Per Day (ICD-10-PCS; 2021-12-08)
PROC: 5A1D70Z Performance of Urinary Filtration, Intermittent, Less than 6 Hours Per Day (ICD-10-PCS; 2021-12-11)
PROC: 5A1D70Z Performance of Urinary Filtration, Intermittent, Less than 6 Hours Per Day (ICD-10-PCS; 2021-12-13)
DX: G06.1 Intraspinal abscess and granuloma (principal); J96.01 Acute respiratory failure with hypoxia; I50.23 Acute on chronic systolic (congestive) heart failure; E11.10 Type 2 diabetes mellitus with ketoacidosis without coma; N18.6 End stage renal disease; M46.22 Osteomyelitis of vertebra, cervical region; I42.0 Dilated cardiomyopathy; E87.1 Hypo-osmolality and hyponatremia; I47.1 Supraventricular tachycardia; I13.2 Hypertensive heart and chronic kidney disease with heart failure and with stage 5 chronic kidney disease, or end stage renal disease; E11.69 Type 2 diabetes mellitus with other specified complication; M46.42 Discitis, unspecified, cervical region; F17.210 Nicotine dependence, cigarettes, uncomplicated; E11.65 Type 2 diabetes mellitus with hyperglycemia; E11.22 Type 2 diabetes mellitus with diabetic chronic kidney disease; F15.10 Other stimulant abuse, uncomplicated; I34.0 Nonrheumatic mitral (valve) insufficiency; I27.20 Pulmonary hypertension, unspecified; B18.2 Chronic viral hepatitis C; K21.9 Gastro-esophageal reflux disease without esophagitis; E87.5 Hyperkalemia; E78.5 Hyperlipidemia, unspecified; E11.43 Type 2 diabetes mellitus with diabetic autonomic (poly)neuropathy; R13.12 Dysphagia, oropharyngeal phase; E11.649 Type 2 diabetes mellitus with hypoglycemia without coma; I16.0 Hypertensive urgency; K59.09 Other constipation; E66.9 Obesity, unspecified; W01.0XXA Fall on same level from slipping, tripping and stumbling without subsequent striking against object, initial encounter; B95.7 Other staphylococcus as the cause of diseases classified elsewhere; I25.10 Atherosclerotic heart disease of native coronary artery without angina pectoris; K31.84 Gastroparesis; Z90.49 Acquired absence of other specified parts of digestive tract; Z99.2 Dependence on renal dialysis; Z98.890 Other specified postprocedural states; Z87.442 Personal history of urinary calculi; Z95.810 Presence of automatic (implantable) cardiac defibrillator; Z79.82 Long term (current) use of aspirin; Z91.14 Patient's other noncompliance with medication regimen; Z95.1 Presence of aortocoronary bypass graft; Z80.8 Family history of malignant neoplasm of other organs or systems; Z79.4 Long term (current) use of insulin; Z91.15 Patient's noncompliance with renal dialysis; Z86.16 Personal history of COVID-19; Z82.49 Family history of ischemic heart disease and other diseases of the circulatory system; Z91.81 History of falling; Z68.27 Body mass index [BMI] 27.0-27.9, adult
CPT/HCPCS: 36415; 70450; 70491; 71045; 72040; 72125; 72141; 80048; 80053; 80170; 80202; 82009; 82550; 82553; 82728; 82947; 82962; 83540; 83550; 83605; 83735; 83880; 84100; 84484; 85025; 85027; 85652; 86140; 87040; 87077; 87150; 87186; 90937; 92610; 93005; 94760; 96374; 96375; 99285; C9113; J0360; J1170; J1580; J1644; J1756; J1885; J2185; J2270; J2405; J3370; J7030; J7050; J7070; Q9967; U0002

== ENCOUNTER 2021-12-27 11:20 | Emergency (ER) | payer OTHER | END 2021-12-27 14:08 | disposition left against medical advice (07) | LOC: ER1 11:20 | DX: T82.838A Hemorrhage due to vascular prosthetic devices, implants and grafts, initial encounter (principal) | CPT/HCPCS: 99281 ==

== ENCOUNTER 2021-12-27 23:12 | Emergency (ER) | payer OTHER | END 2021-12-28 00:08 | disposition home or self-care (01) | LOC: ER1 23:12 | DX: T82.838A Hemorrhage due to vascular prosthetic devices, implants and grafts, initial encounter (principal) | CPT/HCPCS: 93005; 99281 ==

== ENCOUNTER 2021-12-28 15:52 | Emergency (ER) | payer OTHER | END 2021-12-28 16:51 | disposition left against medical advice (07) | LOC: ER1 15:52 | DX: Z53.21 Procedure and treatment not carried out due to patient leaving prior to being seen by health care provider (principal) ==

== ENCOUNTER 2021-12-29 07:17 | Emergency (ER) | payer OTHER ==
[2021-12-29 08:14] LABS: HEMOGLOBIN 7.9 gm/dl (12.3-15.3); RED BLOOD COUNT 2.78 M/UL (4.00-5.10); WHITE BLOOD COUNT 4.8 K/UL (4.5-11.0)
== END 2021-12-29 10:24 | disposition home or self-care (01) ==
LOC: ER1 07:17
PROVIDERS: Family Medicine
DX: T82.838A Hemorrhage due to vascular prosthetic devices, implants and grafts, initial encounter (principal); D69.6 Thrombocytopenia, unspecified; E11.649 Type 2 diabetes mellitus with hypoglycemia without coma; M46.42 Discitis, unspecified, cervical region; I13.2 Hypertensive heart and chronic kidney disease with heart failure and with stage 5 chronic kidney disease, or end stage renal disease; I50.20 Unspecified systolic (congestive) heart failure; N18.6 End stage renal disease; D63.1 Anemia in chronic kidney disease; F17.200 Nicotine dependence, unspecified, uncomplicated; E78.5 Hyperlipidemia, unspecified; E11.22 Type 2 diabetes mellitus with diabetic chronic kidney disease
CPT/HCPCS: 71045; 80048; 82962; 85025; 99284

== ENCOUNTER 2022-01-05 22:31 | Emergency (ER) | payer OTHER ==
[2022-01-05 23:17] LABS: HEMOGLOBIN 8.9 gm/dl (12.3-15.3); RED BLOOD COUNT 3.01 M/UL (4.00-5.10); WHITE BLOOD COUNT 9.9 K/UL (4.5-11.0)
== END 2022-01-06 01:20 | disposition home or self-care (01) ==
LOC: ER1 22:31
PROVIDERS: Family Medicine
DX: F41.9 Anxiety disorder, unspecified (principal); N18.6 End stage renal disease; M46.22 Osteomyelitis of vertebra, cervical region; M46.42 Discitis, unspecified, cervical region; Z99.2 Dependence on renal dialysis; F17.200 Nicotine dependence, unspecified, uncomplicated; J44.9 Chronic obstructive pulmonary disease, unspecified
CPT/HCPCS: 80053; 83735; 85025; 85610; 93005; 99283

== ENCOUNTER 2022-04-18 10:18 | Emergency (ER) | payer OTHER ==
[~2022-04-18 10:18] MED LIST changes: +ATORVASTATIN CA40 MG PO; +CALCIUM ACETAT667 M2 PO; +CLONIDINE HCL0.3 MG PO; +COLACE100 MG PO; +FERROUS SULFAT325 MG PO; +GABAPENTIN100 MG PO; +HUMALOG100 UNIT/3 INJ; -HUMALOG100 UNIT/3 SQ; +HYDRALAZINE HC100 MG PO; +ISOSORBIDE MON120 MG PO; +ONDANSETRON ODT4 MG SL; +PHENERGAN 25 MG25 M1 PO; +PRAZOSIN HCL2 MG PO
[2022-04-18 12:38] LABS: HEMOGLOBIN 10.2 gm/dl (12.3-15.3); RED BLOOD COUNT 3.51 M/UL (4.00-5.10); WHITE BLOOD COUNT 6.2 K/UL (4.5-11.0)
== END 2022-04-18 14:49 | disposition expired ==
LOC: ER1 10:18
PROVIDERS: Emergency Medicine
DX: N18.6 End stage renal disease (principal)
CPT/HCPCS: 80053; 85025; 93005; 96374; 99283; J2405